=== PATIENT | female | born 1995 | race Caucasian/White ===

== ENCOUNTER 2017-02-21 12:52 | Day surgery (SDC) | payer OTHER ==
[~2017-02-21] VITALS: Ht 162.6 cm; Wt 52.0 kg
[~2017-02-21 12:52] MED LIST: LEVO1IUD; SULF1TAB23
[2017-02-21] MEDS ORDERED: LACTATED RINGERS 1,000 ML IV SCH (13:23)
[2017-02-21] MEDS ORDERED: PREN1TAB28 PO (13:26)
[2017-02-21 13:27] VITALS: BP 120/78
[2017-02-21] MEDS ORDERED: FENTANYL PF 250 MCG/5ML ONE ×2 (13:30)
[2017-02-21] MEDS ORDERED: MIDAZOLAM 1 MG/ML, 2ML ONE ×3 (13:30→14:59)
[2017-02-21] MEDS ORDERED: LIDOCAINE 1%, 2ML SQ PRN (13:30)
[2017-02-21] MEDS ORDERED: FENTANYL PF 100 MCG/2ML ONE (14:59)
[2017-02-21] MEDS ORDERED: EPHEDRINE 50 MG/ML, 1ML IVPush PRN (15:00)
[2017-02-21] MEDS ORDERED: ONDANSETRON 2MG/ML, 2ML IVPush PRN (15:00)
[2017-02-21] MEDS ORDERED: FENTANYL PF 100 MCG/2ML IV PRN (15:00)
[2017-02-21] MEDS ORDERED: LABETALOL 5MG/ML, 20ML IV PRN (15:00)
[2017-02-21] MEDS ORDERED: OXYcodone 5 MG/5 ML ORAL.SOL UDC PO PRN (15:00)
[2017-02-21] MEDS ORDERED: ACETAMINOPHEN 325 MG TABLET PO PRN (15:00)
[2017-02-21] MEDS ORDERED: METOPROLOL 1 MG/ML, 5ML IV PRN (15:00)
[2017-02-21] MEDS ORDERED: MEPERIDINE/PF 25MG/0.5ML IVPush PRN (15:00)
[2017-02-21] MEDS ORDERED: hydrALAzine 20 MG/ML, 1ML IV PRN (15:00)
[2017-02-21] MEDS ORDERED: ALBUTEROL SULFATE 2.5 MG/3 ML NPPB PRN (15:00)
[2017-02-21] MEDS ORDERED: CEFAZOLIN 1,000 MG ONE (15:15)
[2017-02-21] MEDS ORDERED: PROPOFOL 10 MG/ML, 20ML ONE (15:15)
[2017-02-21] MEDS ORDERED: ONDANSETRON 2MG/ML, 2ML ONE (15:15)
[2017-02-21] MEDS ORDERED: DEXAMETHASONE 4 MG/ML, 1ML ONE (15:15)
[2017-02-21] MEDS ORDERED: SILVER NITRATE STICK TP ONE (15:18)
[2017-02-21] MEDS ORDERED: MISOPROSTOL 200 MCG TABLET ONE (15:18)
[2017-02-21] MEDS ORDERED: METHYLERGONOVINE 0.2 MG/ML IM ONE (15:18)
[2017-02-21] MEDS ORDERED: OXYTOCIN 10 UNITS/ML, 1ML ONE (15:18)
[2017-02-21] MEDS ORDERED: VASOPRESSIN 20 UNIT/ML, 1ML ONE (15:18)
[2017-02-21] MEDS ORDERED: LIDOCAINE/PF 1%, 30ML ONE (15:18)
[2017-02-21] MEDS ORDERED: MEPERIDINE/PF 25MG/0.5ML ONE (16:08)
[2017-02-21] MEDS ORDERED: OXYcodone 5 MG/5 ML ORAL.SOL UDC ONE (16:31)
== END 2017-02-21 19:30 | disposition home or self-care (01) ==
LOC: OR 12:52
PROVIDERS: ATTEND Obstetrics & Gynecology
DX: O03.4 Incomplete spontaneous abortion without complication (principal); Z3A.08 8 weeks gestation of pregnancy; G43.909 Migraine, unspecified, not intractable, without status migrainosus; K08.409 Partial loss of teeth, unspecified cause, unspecified class; Z83.3 Family history of diabetes mellitus; Z83.49 Family history of other endocrine, nutritional and metabolic diseases; Z82.49 Family history of ischemic heart disease and other diseases of the circulatory system; Z82.3 Family history of stroke; Z80.3 Family history of malignant neoplasm of breast; Z79.899 Other long term (current) drug therapy
CPT/HCPCS: 36415; 59812; 81229; 85025; 86850; 86900; 88305; J0690; J1100; J2175; J2250; J2405; J2704; J3010; J3490; J2210; J2590